=== PATIENT | female | born 1970 | race Caucasian/White ===

== ENCOUNTER → 2024-04-05 15:19 | Outpatient (REF) | payer OTHER, SELFPAY | LOC: HWWDC 15:19 | PROVIDERS: ATTENDING PHYSICIAN Physician Assistant Medical | DX: Z12.31 Encounter for screening mammogram for malignant neoplasm of breast (principal) | CPT/HCPCS: 77063; 77067 ==

== ENCOUNTER → 2024-11-02 14:08 | Outpatient (REF) | payer OTHER, SELFPAY | LOC: RCS 14:08 | PROVIDERS: ATTENDING PHYSICIAN Orthopaedic Surgery Hand Surgery; FAMILY PHYSICIAN Physician Assistant Medical | DX: Z01.818 Encounter for other preprocedural examination (principal) | CPT/HCPCS: 93005 ==

== ENCOUNTER 2025-07-19 14:00 | Inpatient (IN) | payer OTHER, SELFPAY ==
[2025-07-19] VITALS (23 sets, daily range): BP systolic 89–130; BP diastolic 19–85; BMI 33.5; BMI 33.0
[2025-07-19] MEDS: NSS 1000 IV ×4 (10:09→20:47)
--- NOTE | 2025-07-19 10:27 | ED.GENMED ---
History of Present Illness
General
Chief Complaint: Abdominal Pain
Source: patient
Exam Limitations: none
Time Seen by Provider: 07/19/25 09:44
History of Present Illness
History of Present Illness:
Patient started with right sided back pain with radiation to groin 4 days ago. Followed by some chills yesterday and shortness of breath and now with diarrhea. No urinary symptoms. History of kidney stones. Also some chest tightness. This is
also been since yesterday.
Past History
Past History
ED Past Medical History: Hypothyroidism
ED Past Surgical History: Cholecystectomy and Other (Hernia repair and stent for kidney stone)
Social History
Tobacco: Non-smoker
Alcohol: Occasional
Drug: None
Personal:
Living: with family
Family History
Family History: Negative Diabetes, Hypertension, Early CAD or Asthma
Review of Systems
Review of Systems
All Other Systems: Not applicable
Constitutional: Reports chills
Respiratory: Reports trouble breathing
Cardiac: Reports chest pain
Phy Exam
Physical Exam
Physical Exam:
GENERAL: Alert and oriented in no apparent distress
EYE: Orbits normal.
NECK: Supple, no significant adenopathy.
ENT: Pharynx without erythema
CARDIAC: Mildly tachycardic and regular no murmur regular rate and rhythm without any obvious murmurs.
LUNGS: Clear breath sounds,normal
ABDOMEN: Soft, mild right lower quadrant tenderness. No rebound or guarding no mass or hernia mild right CVA tenderness
NEUROLOGICAL: Alert and oriented , grossly non-focal
SKIN: Warm and dry, no rash or lesion, no discoloration, skin intact.
MUSCULOSKELETAL: No edema,no deformity.Good color
PSYCH: Normal and appropriate interaction.
Course
Orders/Labs/Results
Orders:
Orders
07/19/25 09:52
Cardiac Monitoring- Treatment ONCE
IV Insert/Care/Rem.- Treatment PRN
0.9% Sodium Chloride 1000 ml [Nss] 1,000 ml IV BOLUS
Pulse Ox/cont/shift [RESP] Stat
Quantity: 1
07/19/25 09:53
Electrocardiogram (*1) Stat
Reason for Study: Abdominal Pain
EKG- Treatment ONCE
Test Result ONCE
07/19/25 10:07
Complete Blood Count/With Diff Urgent
Comprehensive Metabolic Panel Urgent
D-Dimer Urgent
HCG, Serum Qualitative Screen Urgent
Lactic Acid Urgent
Lipase Urgent
Troponin I Urgent
Blood Culture Q30M
SOLE Source: Blood/Venous
Specimen Description:
07/19/25 10:28
Acetaminophen 1000MG/100Ml [Ofirmev] 1,000 mg in 100 ml IV ONCE
Acetaminophen IV Indication:: ED Narcotic Naive Pt-ONCE
07/19/25 10:43
CT Pe/abd/pel W Urgent
Reason For Exam: Short of breath/positive dimer
07/19/25 10:44
Cefepime HCl [Maxipime] 2,000 mg IV NOW STA
07/19/25 10:51
0.9% Sodium Chloride 1000 ml [Nss] 1,000 ml IV BOLUS
07/19/25 10:59
Blood Culture Q30M
SOLE Source: Blood/Venous
Specimen Description:
07/19/25 11:45
Urinalysis Reflex To Culture Urgent
Date Specimen was Collected: 07/19/25
Time Specimen was Collected: 11:32
Urine Microscopic Reflex Cult Urgent
Urine Culture Urgent
SOLE Source: U
Specimen Description:
Date Specimen was Collected: 07/19/25
Time Specimen was Collected: 11:32
Abnormal Lab Results
07/19/25 07/19/25
10: 11:45
RBC 3.76 L 10^6/uL
(4.20-5.40)
Hgb 11.5 L g/dL
(12.0-16.0)
Hct 33.5 L %
(37.0-47.0)
Plt Count 123 L 10^3/uL
(130-400)
MPV 11.7 H fL
(7.4-10.4)
Absolute Neuts (auto) 7.5 H 10^3/uL
(1.4-6.5)
Absolute Lymphs (auto) 0.6 L 10^3/uL
(1.2-3.4)
Neutrophils % 86.3 H %
(42.2-75.2)
Lymphocytes % 7.4 L %
(20.5-51.1)
D-Dimer 3.23 H ug/mlFEU
(0.00-0.50)
Sodium 132 L mmol/L
(135-145)
Carbon Dioxide 20 L mmol/L
(22-30)
Glucose 194 H mg/dl
(70-99)
Lactic Acid 2.2 H mmol/L
(0.7-2.0)
Calcium 8.3 L mg/dl
(8.4-10.2)
AST 41 H U/L
(14-36)
ALT 69 H U/L
(0-35)
Total Protein 5.5 L g/dl
(6.3-8.2)
Albumin 3.0 L g/dl
(3.5-5.0)
Ur Occult Blood Reflex 2+ A
(Negative)
Leukocyte Esterase Rfl 2+ A
(Negative)
Urine Glucose 2+ A
(Negative)
Urine Albumin (Reflex) 3+ A
(Neg - Trace)
07/19/25 10:07
07/19/25 10:07
Vital Signs
Initial and Last Documented VS:
Initial Vital Signs
Temp Pulse Resp BP Pulse Ox
98.2 F 114 20 95/64 96
07/19/25 09:11 07/19/25 09:11 07/19/25 09:11 07/19/25 09:11 07/19/25 09:11
Last Documented Vital Signs
Temp Pulse Resp BP Pulse Ox
98.2 F 96 20 95/64 96
07/19/25 09:11 07/19/25 10:15 07/19/25 09:11 07/19/25 09:11 07/19/25 10:28
MDM/Problems Addressed
Differential Diagnosis Includes:
Large differential including obstructing kidney stone with or without pyelo-, appendicitis, colitis. Also having some chest tightness and shortness of breath. Cardiac testing and D-dimer. Workup in progress
*Radiology
Radiology exam reviewed: radiology read reviewed (No acute findings)
*Pulse Oximetry
SaO2: 96
Oxygen Mode of Delivery: Room air
Patient hypoxic: no
*Head Knitting Machine Fixer Interpretation
Rate: normal
Interpretation: normal
Heart Rate: 77
Rhythm: sinus
*Critical Care Note
Total Time (30-74mins, 75-104mins- exclusive of procedures): 40
Data Reviewed
Review of Other/Old Records Reveals: Labs, Records and Testing
Update Note
Update Note:
1050... Rechecked. D-dimer positive. False positive from other inflammatory issue versus true positive. Needs a CT angio. Will also get CT abdomen and pelvis. Will cover with antibiotics for possible pyelo-/obstructing stone. More fluids.
Patient and family updated. Patient rechecked multiple times. Blood pressure remains slightly low although she appears well.
Only positive significant finding is urine appears positive and lactic acid is mildly positive. At this time appears to be a pyelonephritis with some early urosepsis. Will admit to medicine.
ED Attending Note
-
Portions of this chart may have been created with voice recognition software.� Occasional wrong word or��sound alike� substitutions may have occurred due to the inherent limitations of voice recognition software.
Discharge Plan
Departure
Patient Disposition: Admit
Date of Disposition: 07/19/25
Time of Disposition: 12:11
Presentation/result/management discussed w/ accepting MD/DO: Hospitalist
Discharge Problem:
Pyelonephritis/hypotension
Prescriptions:
No Action
cyanocobalamin (vitamin B-12) 1,000 MCG tablet
1,000 mcg PO DAILY
ascorbic acid (vitamin C) 250 MG tablet
250 mg PO DAILY
calcium carbonate 500 MG tablet
500 mg PO DAILY
duloxetine 60 MG capsule,delayed release(DR/EC)
60 mg PO DAILY
cholecalciferol (vitamin D3) 2,000 UNIT tablet
2,000 unit PO DAILY
PreserVision AREDS-2 1 EACH capsule
1 cap PO DAILY
meloxicam 15 MG tablet
15 mg PO DAILY Qty: 30 0RF
Zepbound 7.5 mg/0.5 mL Pen Injector
7.5 mg SC TU
acetaminophen [Tylenol Extra Strength] 500 MG tablet
1,000 mg PO Q6HPRN PRN (Reason: mild pain)
acetaminophen [Tylenol] 325 mg Tablet
650 mg PO DAILY
aspirin 81 mg Tablet,Delayed Release (Dr/Ec)
81 mg PO DAILY
lisinopril 10 mg Tablet
10 mg PO DAILY
levothyroxine [Synthroid] 112 mcg Tablet
112 mcg PO DAILY
metformin 750 mg Tablet Extended Release 24 Hr
750 mg PO QPM
pregabalin [Lyrica] 75 mg Capsule
75 mg PO BID
Referrals:
Janis Chase PA-C [Family Provider, Family Practice]
Discharge Date and Time
Print Language: UPPER SORBIAN
[2025-07-19] MEDS: OFIRMEV 100 IV (10:31)
[2025-07-19 10:33] LABS: Hematocrit 33.5 % (37.0-47.0); Hemoglobin 11.5 g/dL (12.0-16.0); Mean Corp Hgb Conc. 34.3 g/dL (33.0-37.0); Mean Corpuscular Volume 89.1 fL (81.0-99.0); Nucleated Red Blood Cells % 0 %; Platelet Count 123 10^3/uL (130-400); Red Cell Dist. Width 12.8 % (11.5-14.5)
[2025-07-19 10:37] LABS: D-Dimer 3.23 ug/mlFEU (0.00-0.50); HCG, Serum Qualitative Screen Negative
[2025-07-19 10:43] LABS: ALT (SGPT) 69 U/L (0-35); AST (SGOT) 41 U/L (14-36); Albumin 3.0 g/dl (3.5-5.0); Alkaline Phosphatase 95 U/L (38-126); Blood Urea Nitrogen 15 mg/dl (7-17); Calcium 8.3 mg/dl (8.4-10.2); Carbon Dioxide 20 mmol/L (22-30); Chloride 105 mmol/L (98-107); Glucose 194 mg/dl (70-99); Lipase 32 U/L (23-300); Potassium 3.5 mmol/L (3.5-5.1); Sodium 132 mmol/L (135-145); Total Protein 5.5 g/dl (6.3-8.2); eGFR > 60.00
[2025-07-19 10:50] LABS: Troponin I < 0.012 ng/ml
[2025-07-19] MEDS: MAXIPIME 2000 MG IV (11:03)
[2025-07-19 12:07] LABS: Urine Character Cloudy (Clear)
[2025-07-19 12:22] LABS: Urine Squamous Cell 0-2 /LPF (Few)
[2025-07-19 12:23] LABS: Urine Red Blood Cell 0-2 /HPF (0-2)
--- NOTE | 2025-07-19 12:24 | HPS.HSE ---
Addendum entered and electronically signed by Judith Turcios MD 07/19/25 17:52:
This is an addendum to H&P written by Mary Anne Medina on 07/19/2025. �Patient seen and examined independently with WOODWIND INSTRUMENT REPAIRER.
55-year-old female past medical history nephrolithiasis status post ureteroscopy/cystoscopy and laser lithotripsy and renal stent x 2, type 2 diabetes, hypothyroidism, fibromyalgia, anxiety, osteoarthritis, obesity, migraines, herpes simplex virus,
cervical degenerative disease with radiculopathy, varicose veins status post vein stripping, left knee Smyth's cyst, presenting with right flank pain to the right groin 5 days ago with urinary frequency and vomiting. �Pudding-like stool 2 times a
day.
Vital signs show blood pressure 90s.
Urinalysis unremarkable.
CT abdomen pelvis shows right renal pyelonephritis without obstructive uropathy.
Patient with acute right-sided pyelonephritis IV fluids. �Urine culture, blood cultures. �Cefepime.
Original Note:
Family Physician
-
Family Physician: Janis Chase
Chief Complaint
-
Right sided flank pain, urinary frequency 5 days ago, pudding-like stool
History of Present Illness
55-year-old female complaining of right sided back pain with radiation to groin and urinary frequency 5 days ago. She reports the urinary frequency lasted 1 day. She states she was in [place] went to a wedding on Thursday then woke up Thursday
a.m. with right flank pain to right lower quadrant along with vomiting and chills. She headed home to [place] she states she also developed some pudding-like stool 2 times a day for the past 5 days, headache x 3 days resolving yesterday along
with some shortness of breath and chest tightness. She denies urinary symptoms but has history of renal calculi requiring lithotripsy and stents. She went to the wedding with her and parents who are in the room all of them ate the same
items no one is currently sick. She has no respiratory symptoms she was in a hot tub but legs only she has no rash, fever, joint pain, joint swelling, palpitations, current nausea, current vomiting, current headache, neck pain, nuchal rigidity,
cough.
She has past medical history nephrolithiasis, diverticulosis, colonic polyps, DM 2, migraines, hypothyroidism, fibromyalgia, anxiety, herpes simplex virus, cervical DDD with radiculopathy, mildly elevated ALT, class II obesity, varicose veins status
post vein stripping, osteoarthritis, left knee total arthroplasty 12/30/2021 left knee Smyth's cyst
Medical History
Past Medical History
Past Medical History: Reports Other
Additional Past Medical History:
nephrolithiasis
diverticulosis, colonic polyps
DM 2
migraines
hypothyroidism
fibromyalgia
anxiety
herpes simplex virus
cervical DDD with radiculopathy
mildly elevated ALT
class II obesity
varicose veins status post vein stripping,
osteoarthritis, left knee total arthroplasty
Past Surgical History: Reports Other
Additional Past Surgical History:
Left knee arthroscopy
Left knee total arthroplasty 12/30/2021
Cystoscopy ureteroscopy laser lithotripsy and renal stent x 2
Cholecystectomy
Abdominal hernia repair
Varicose vein stripping
[place] teeth extraction
Colonoscopy
Social History
Tobacco: Non-smoker
Alcohol: None
Drug: None
Personal:
Living: With Family
Family History
Family History: Other (Father A-fib, hypertension, pacemaker, diverticulosis, diverticulitis, polyps, mother history of thyroid cancer total thyroidectomy, colonic polyps)
Allergies / Home Medications
Allergies reflects when Allergies were last updated in [facility].
Home Medications with original date entered in [facility]
Allergy/Medication List:
Allergies
Allergy/AdvReac Type Severity Reaction Status Date / Time
No Known Allergies Allergy Verified 12/30/21 06:11
Home Medications
ascorbic acid (vitamin C) 250 mg tablet 250 mg PO DAILY 06/14/15
cyanocobalamin (vitamin B-12) 1,000 mcg tablet 1,000 mcg PO DAILY 06/14/15
calcium carbonate 500 mg PO DAILY 12/13/21
cholecalciferol (vitamin D3) 50 mcg (2,000 unit) tablet 2,000 unit PO DAILY 12/13/21
duloxetine 60 mg capsule,delayed release 60 mg PO DAILY 12/13/21
vit C 250 mg-vit E 90 mg-zinc 40 mg-copper 1 [id number] capsule (PreserVision AREDS-2) 1 cap PO DAILY 12/13/21
meloxicam 15 mg tablet 15 mg PO DAILY #30 tabs 12/16/21
acetaminophen 325 mg tablet (Tylenol) 650 mg PO DAILY 07/19/25
acetaminophen 500 mg tablet (Tylenol Extra Strength) 1,000 mg PO Q6HPRN PRN mild pain 07/19/25
aspirin 81 mg tablet,delayed release 81 mg PO DAILY 07/19/25
levothyroxine 112 mcg tablet (Synthroid) 112 mcg PO DAILY 07/19/25
lisinopril 10 mg tablet 10 mg PO DAILY 07/19/25
metformin 750 mg tablet,extended release 24 hr 750 mg PO QPM 07/19/25
pregabalin 75 mg capsule (Lyrica) 75 mg PO BID 07/19/25
tirzepatide (weight loss) 7.5 mg/0.5 mL subcutaneous pen injector (Zepbound) 7.5 mg SC TU 07/19/25
Review of Systems
-
History Source: Patient
A 12 point ROS was completed and negative except as noted: Yes
Constitutional: Reports Chills; Denies Weight Gain or Fatigue
EENT: Reports Sore Throat; Denies Runny Nose
Respiratory: Denies Cough or Trouble Breathing
Cardiac: Denies Chest Pain, Diaphoresis, Palpitations or Syncope
Abdomen/GI: Reports Abdominal Pain (Right flank, right groin, suprapubic), Vomiting (Once 5 days ago) and Diarrhea (Pudding-like stool 2 times a day); Denies Nausea, Constipated, Bloody Stools or Black Stools
: Reports Frequency (5 days ago) and Flank Pain (Right); Denies Dysuria, Incontinence, Difficulty Voiding, Urgency, Bleeding or Dark Urine
Musculoskeletal: Denies Joint Pain or Edema
Skin: Denies Itching or Rash
Neurological: Reports Headache (Headache x 3 days resolved yesterday 07/18/2025); Denies Dizzy or Weakness
Endocrine: Reports No Symptoms
Hematologic/Lymphatic: Reports No Symptoms
Psych: Reports Calm
Physical Exam
Vital Signs
Vital Signs
Temp Pulse Resp BP Pulse Ox
98.2 F 96 20 95/64 96
07/19/25 09:11 07/19/25 10:15 07/19/25 09:11 07/19/25 09:11 07/19/25 10:28
Physical Exam
General: Conversant; No Pain, Fever or Chills
HEENT: NormoCephalic, Anicteric, Moist mucous membranes, [place] Conjunctivae and No Ptosis
Respiratory: Clear; No Wheezes, Rales or Rhonchi
Cardiac: S1/S2 and Regular Rhythm; No Murmur, Rub, Gallop or Peripheral Edema
Breast: Deferred by me
GI: Soft, Non Distended, Normal Bowel Sounds, Tender (Slight suprapubic, right lower quadrant) and No Hepatosplenomegaly
Rectal: Deferred by Provider
Genito-urinary: Deferred by me
Musculoskeletal: No Clubbing, No Cyanosis and No Edema
Skin: Warm and Dry; No Rash or Jaundice
Neuro: AO x 3, No Motor Deficits, Nonfocal/grossly intact, Cranial Nerves Intact and No Sensory Deficits; No Slurred Speech, Facial Droop or Tremors
Psych: Calm
Laboratory Results
-
07/19/25 10:07
07/19/25 10:07
Laboratory Results
Lactic Acid 2.2 mmol/L (0.7-2.0) H 07/19/25 10:07
Total Bilirubin 0.7 mg/dl (0.2-1.3) 07/19/25 10:07
AST 41 U/L (14-36) H 07/19/25 10:07
ALT 69 U/L (0-35) H 07/19/25 10:07
Alkaline Phosphatase 95 U/L (38-126) 07/19/25 10:07
Troponin I < 0.012 ng/ml 07/19/25 10:07
Lipase 32 U/L (23-300) 07/19/25 10:07
Impression/Plan
-
Impression/plan:
Admit to IMU
#Acute pyelonephritis right sided
#History nephrolithiasis status post Cystoscopy ureteroscopy laser lithotripsy and renal stent x 2
Cholecystectomy
WBC 8.7, HR 96, 95/64, 98.2 F
- IV NSS 2 L given in ER, continue IV NSS 100 cc an hour
- IV cefepime
- Follow urine culture
- Follow CBC, CMP
CT DDENDED REPORT:
The right kidney cortex is a little thicker than the left renal cortex and right renal opacification is minimally diffusely heterogeneous with some questionable minimal perinephric stranding.
Findings could represent RIGHT RENAL PYELONEPHRITIS, without obstructive uropathy.
#Acute hypotension likely secondary to SIRS concern for sepsis
BP 95/64
-IV NSS 2 L given in ER continue IV NSS 100 cc an hour
-Hold lisinopril [address] PE/abdominal pelvis:
1. No evidence of central pulmonary embolism.
2. Mild bibasilar subsegmental atelectasis and tiny bilateral pleural effusions,
right slightly greater than left.
3. Prior cholecystectomy.
4. Distal colonic diverticulosis. No intestinal obstruction, free air or findings to
suggest obstructive uropathy bilaterally.
5. Mild hepatomegaly liver approximate 21 cm
#Loose stools pudding-like likely reactive
History diverticulosis colonic polyps
- if stool becomes watery will check stool studies
#Anemia�normocytic
Hgb 11.5 prior 13.15 December 2021
-Check iron panel, B12, folate-continue vitamin B12
#Thrombocytopenia possibly reactive
PLT 123
Follow CBC, INR
#Acute transaminitis
History mildly elevated ALT
AST 41, ALT 69
follow CMP
#DM 2
Accu-Cheks with SSI, check HgbA1c
-Blood sugar 194
-Hold metformin 750 mg every afternoon
#Hypothyroidism
TSH with free T4 reflex
Continue levothyroxine 112 mcg p.o. daily
#Fibromyalgia
Hold meloxicam 15 mg daily
- Continue Lyrica 75 mg twice daily
#Anxiety
- Continue duloxetine 60 mg daily
Osteoarthritis, left knee total arthroplasty 12/30/2021
- Continue Tylenol 660 mg daily and as needed, calcium carbonate, vitamin D3
Class II obesity
Patient on Zepbound 7.5 mg subcu Tuesdays last dose 07/11/2025
Other PMH:
Migraines�no current headache prior headache ended yesterday 07/18/2025
Herpes simplex virus
cervical DDD with radiculopathy,
varicose veins status post vein stripping
left knee Smyth's cyst
DVT prophylaxis
Subcu heparin
Full code
[2025-07-19 14:09] LABS: Iron 20 ug/dl (37-170)
[2025-07-19 14:12] LABS: Total Iron Binding Capacity 233 ug/dl (265-497)
[2025-07-19 14:39] LABS: Ferritin 173.0 ng/ml (11.1-264.0)
[2025-07-19 14:45] LABS: INR 1.03; PT 14.0 Sec (11.4-14.6)
[2025-07-19 15:10] LABS: Folate 9.5 ng/ml (2.76-20); Vitamin B12 > 1000 pg/ml (239-931)
--- NOTE | 2025-07-19 15:45 | EDCM ---
CM reviewed chart and met with pt bedside in ED. Lives with her in 2 story home, 2 [address]. has first floor half bath, full flight to second floor bedroom and full bath.
Independent in ADLs, personal care and ambulation at baseline. NO DME.
Confirms prescription coverage.
Hx VN after shoulder surgery, no hx SNF
PCP: Janis Perez
Pharmacy: [facility]
Anticipate discharge home, CM will continue to follow for all discharge planning needs
[2025-07-19] MEDS: MAXIPIME 1000 MG IV (18:20)
[2025-07-19] MEDS: VALTREX 500 MG PO (18:20)
[2025-07-19] MEDS: STERILE WATER FOR INJECTION 10 ML IV (18:20)
[2025-07-19] MEDS: HEPARIN 5000 UNITS SC (20:11)
[2025-07-19] MEDS: LYRICA 75 MG PO (20:15)
--- NOTE | 2025-07-19 21:28 | PTCARENOTE ---
Admitted pt. aaox3, pleasant. at bedside. IVF running. BP stable. OOB to BR no issues. Tenderness in R flank. NO assessment changes. IVabx. no c/o sob. NSR on monitor. Remains RA. Will continue to monitor.
[2025-07-20] VITALS (14 sets, daily range): BP systolic 100–128; BP diastolic 66–80
[2025-07-20] MEDS: MAXIPIME 1000 MG IV ×4 (02:12→21:10)
[2025-07-20] MEDS: STERILE WATER FOR INJECTION 10 ML IV ×4 (02:12→21:10)
[2025-07-20] MEDS: SYNTHROID 112 MCG PO (05:33)
[2025-07-20] MEDS: TYLENOL 650 MG PO ×2 (05:33→14:20)
[2025-07-20 06:09] LABS: Hematocrit 31.7 % (37.0-47.0); Hemoglobin 11.0 g/dL (12.0-16.0); Mean Corp Hgb Conc. 34.7 g/dL (33.0-37.0); Mean Corpuscular Volume 89.5 fL (81.0-99.0); Nucleated Red Blood Cells % 0 %; Platelet Count 131 10^3/uL (130-400); Red Cell Dist. Width 12.8 % (11.5-14.5)
[2025-07-20 06:17] LABS: ALT (SGPT) 71 U/L (0-35); AST (SGOT) 39 U/L (14-36); Albumin 2.8 g/dl (3.5-5.0); Alkaline Phosphatase 95 U/L (38-126); Blood Urea Nitrogen 10 mg/dl (7-17); Calcium 8.3 mg/dl (8.4-10.2); Carbon Dioxide 19 mmol/L (22-30); Chloride 111 mmol/L (98-107); Estimated Creatinine Clearance 85 ml/min; Glucose 114 mg/dl (70-99); Magnesium 1.7 mg/dl (1.6-2.3); Potassium 4.1 mmol/L (3.5-5.1); Sodium 135 mmol/L (135-145); Total Protein 5.3 g/dl (6.3-8.2); eGFR > 60.00
[2025-07-20] MEDS: NSS 1000 IV ×2 (07:07→17:01)
[2025-07-20] MEDS: ASPIR LOW (ENTERIC COATED) 81 MG PO (08:05)
[2025-07-20] MEDS: HEPARIN 5000 UNITS SC ×2 (08:05→21:09)
[2025-07-20] MEDS: CYMBALTA DELAYED RELEASE 60 MG PO (08:05)
[2025-07-20] MEDS: VITAMIN D3 (cholecalciferol) 50 MCG PO (08:07)
[2025-07-20] MEDS: OCUVITE SOFTGEL 1 CAP PO (08:07)
[2025-07-20] MEDS: OSCAL CAL 500 500 MG PO (08:07)
[2025-07-20] MEDS: LYRICA 75 MG PO ×2 (08:07→21:09)
[2025-07-20] MEDS: VITAMIN B-12 PO (08:08)
[2025-07-20 08:42] LABS: Glycohemoglobin (HgbA1c) 5.2 % (4.0-5.6)
[2025-07-20] MEDS: TYLENOL PO (09:08)
[2025-07-20] MEDS: VALTREX 500 MG PO (09:20)
--- NOTE | 2025-07-20 10:59 | W.PN.HOSP.TC ---
Today's Communication/Plan
-
cont IVF
repeat blood cultures
cont cefepime
transfer to med/surg
Assessment / Plan
Assessment / Plan
pt is a 55 year old female
Acute pyelonephritis right sided (does not meet sepsis criteria)-- (History nephrolithiasis status post Cystoscopy ureteroscopy laser lithotripsy and renal stent x 2)--CT scan with right renal pyelonephritis without obstruction--blood cultures
positive for Klebsiella and urine culture with gm neg bacilli but likely same bacteria--repeat blood culture until neg to prove clearance--cont cefepime until sensitivities back--cont IVF--
Acute hypotension --cont IVF--hold BP meds for now
soft stools--likely abx related--follow for now
hypothyroid--TSH 30--will increase synthroid dose and will need TFT recheck in 4-6 weeks
Anemia of chronic disease--based on iron studies--B12 and folate WNL--cont supplements
Thrombocytopenia--likely due to infection
Acute transaminitis-- follow CMP
Type 2 DM--Accu-Cheks with SSI, check [id number]--Aapo metformin 750 mg every afternoon due to IV contrast study
Fibromyalgia--Hold meloxicam 15 mg daily-- Continue Lyrica 75 mg twice daily
Anxiety-- Continue duloxetine 60 mg daily
Osteoarthritis, left knee total arthroplasty 12/30/2021- Continue Tylenol 660 mg daily and as needed, calcium carbonate, vitamin D3
obesity--Patient on Zepbound 7.5 mg subcu Tuesdays last dose 07/11/2025--affects all aspects of care
Migraines�no current headache prior headache ended yesterday 07/18/2025
cervical DDD with radiculopathy
varicose veins status post vein stripping
DVT proph--Subcu heparin
code status--Full code
Anticipated Discharge: 24 - 48 hours
Subjective/Interval History
-
Date of Service: July 20, 2025
pt without c/o
Objective Data
-
Labs:
Laboratory Results
07/20/25
05:32
WBC 6.1
Hgb 11.0 L
Hct 31.7 L
Plt Count 131
Sodium 135
Potassium 4.1
Chloride 111 H
Carbon Dioxide 19 L
BUN 10
Creatinine 0.9
Glucose 114 H
Calcium 8.3 L
Total Bilirubin 0.7
AST 39 H
ALT 71 H
Alkaline Phosphatase 95
Vital Signs:
max temp for 24 hours
07/19/25
22:56
Temp 99.7 F
Vital Signs
Temp Pulse Resp BP Pulse Ox
98.5 F 88 24 104/69 95
07/20/25 07:18 07/20/25 04:00 07/20/25 04:00 07/20/25 04:00 07/20/25 00:00
Review of Systems
-
All other systems: Reviewed and negative
Physical Exam
-
General: Well Developed, Well Nourished and No Apparent Distress
HEENT: Normocephalic and Atraumatic
Respiratory: Clear to Auscultation; Negative Wheezes or Rhonchi
Cardiac: Regular Rhythm and S1/S2; Negative Murmur
GI: Soft, Nontender, Nondistended and Normal Bowel Sounds
Genito-urinary: Costovertebral Angle Tend (right side--minimal)
Musculoskeletal: No Clubbing, No Cyanosis and No Edema
Neuro: Awake
--- NOTE | 2025-07-20 12:01 | CM ---
Following up on Patient. Hospital Notes state that patient is continuing IV fluids, repeat blood cultures, and continue IV Cefapine- no plan thus far for milk hauler.
PLAN: Anticipate Home No Needs
--- NOTE | 2025-07-20 12:06 | PTCARENOTE ---
Patient received from night warehouse manager RN. AAOx3 no discomfort at this time. Patient ambulating in room, ordered breakfast. VS within normal limits. Morning meds administered, plan of care discussed for the day.
--- NOTE | 2025-07-20 12:13 | CM ---
Hospital Notes state that patient is continuing IV fluids, repeat blood cultures, and continue IV Cefepime- no plan thus far for skilled nursing.
PLAN: Anticipate Home No Needs
[2025-07-20] MEDS: STERILE WATER FOR INJECTION IV (17:23)
[2025-07-20] MEDS: MELATONIN 3 MG PO (21:12)
[2025-07-21] MEDS: NSS 1000 IV (02:33)
[2025-07-21] MEDS: STERILE WATER FOR INJECTION 10 ML IV ×2 (02:34→08:48)
[2025-07-21] MEDS: MAXIPIME 1000 MG IV ×2 (02:35→08:47)
[2025-07-21] MEDS: SYNTHROID 125 MCG PO (05:05)
[2025-07-21 06:45] VITALS: BP 106/73
[2025-07-21 07:12] LABS: Hematocrit 30.9 % (37.0-47.0); Hemoglobin 10.6 g/dL (12.0-16.0); Mean Corp Hgb Conc. 34.3 g/dL (33.0-37.0); Mean Corpuscular Volume 89.8 fL (81.0-99.0); Nucleated Red Blood Cells % 0 %; Platelet Count 141 10^3/uL (130-400); Red Cell Dist. Width 13.2 % (11.5-14.5)
[2025-07-21 07:44] LABS: ALT (SGPT) 53 U/L (0-35); AST (SGOT) 22 U/L (14-36); Albumin 2.6 g/dl (3.5-5.0); Alkaline Phosphatase 88 U/L (38-126); Blood Urea Nitrogen 9 mg/dl (7-17); Calcium 8.3 mg/dl (8.4-10.2); Carbon Dioxide 23 mmol/L (22-30); Chloride 109 mmol/L (98-107); Estimated Creatinine Clearance 85 ml/min; Glucose 93 mg/dl (70-99); Magnesium 1.6 mg/dl (1.6-2.3); Potassium 3.8 mmol/L (3.5-5.1); Sodium 137 mmol/L (135-145); Total Protein 5.0 g/dl (6.3-8.2); eGFR > 60.00
[2025-07-21] MEDS: CYMBALTA DELAYED RELEASE 60 MG PO (08:46)
[2025-07-21] MEDS: ASPIR LOW (ENTERIC COATED) 81 MG PO (08:46)
[2025-07-21] MEDS: TYLENOL 650 MG PO (08:46)
[2025-07-21] MEDS: LYRICA 75 MG PO (08:46)
[2025-07-21] MEDS: VITAMIN D3 (cholecalciferol) 50 MCG PO (08:46)
[2025-07-21] MEDS: OCUVITE SOFTGEL 1 CAP PO (08:46)
[2025-07-21] MEDS: VITAMIN B-12 1000 MCG PO (08:46)
[2025-07-21] MEDS: HEPARIN 5000 UNITS SC (08:47)
[2025-07-21] MEDS: OSCAL CAL 500 500 MG PO (08:47)
[2025-07-21] MEDS: VALTREX 500 MG PO (10:01)
--- NOTE | 2025-07-21 12:11 | W.PN.HOSP.TC ---
Today's Communication/Plan
-
Transition to oral Keflex
Discharge
Assessment / Plan
Assessment / Plan
Acute pyelonephritis right sided (does not meet sepsis criteria)-- (History nephrolithiasis status post Cystoscopy ureteroscopy laser lithotripsy and renal stent x 2)--CT scan with right renal pyelonephritis without obstruction--blood cultures
positive for Klebsiella and urine culture with gm neg bacilli but likely same bacteria--repeat blood culture until neg to prove clearance--remains on IV cefepime as of this morning. Urine culture finalized�demonstrated Klebsiella with sensitivity
to first generation cephalosporins. Will transition to oral Keflex 500 mg every 12 hours to complete 14-day course of antibiotics for pyelonephritis.
Acute hypotension --cont IVF--hold BP meds for now
soft stools--likely abx related--follow for now
hypothyroid--TSH 30--will increase synthroid dose and will need TFT recheck in 4-6 weeks. Placed instructions to avoid calcium/magnesium supplements, or any food within 2 hours before taking levothyroxine
Anemia of chronic disease--based on iron studies--B12 and folate WNL--cont supplements
Thrombocytopenia--likely due to infection
Acute transaminitis-- follow CMP
Type 2 DM--Accu-Cheks with SSI, check [id number]--Ovnk metformin 750 mg every afternoon due to IV contrast study
Fibromyalgia--Hold meloxicam 15 mg daily-- Continue Lyrica 75 mg twice daily
Anxiety-- Continue duloxetine 60 mg daily
Osteoarthritis, left knee total arthroplasty 12/30/2021- Continue Tylenol 660 mg daily and as needed, calcium carbonate, vitamin D3
obesity--Patient on Zepbound 7.5 mg subcu Tuesdays last dose 07/11/2025--affects all aspects of care
Migraines�no current headache prior headache ended yesterday 07/18/2025
cervical DDD with radiculopathy
varicose veins status post vein stripping
DVT proph--Subcu heparin
code status--Full code
Anticipated Discharge: Today
Subjective/Interval History
-
Date of Service: July 21, 2025
Seen and examined at the bedside. No acute events overnight. AFVSS this morning
Blood culture and urine culture growing Klebsiella. Urine culture with sensitivities to first generation cephalosporins
Patient up and walking around the room, states she feels very well.
Objective Data
-
Labs:
Laboratory Results
07/21/25
06:03
WBC 7.3
Hgb 10.6 L
Hct 30.9 L
Plt Count 141
Sodium 137
Potassium 3.8
Chloride 109 H
Carbon Dioxide 23
BUN 9
Creatinine 0.9
Glucose 93
Calcium 8.3 L
Total Bilirubin 0.5
AST 22
ALT 53 H
Alkaline Phosphatase 88
Vital Signs:
Vital Signs
Temp Pulse Resp BP Pulse Ox
99.8 F 80 18 106/73 96
07/21/25 06:45 07/21/25 06:45 07/21/25 06:45 07/21/25 06:45 07/21/25 06:45
Review of Systems
-
History Source: Patient
All other systems: Reviewed and negative
Physical Exam
-
General: Well Developed, Well Nourished and Obese
HEENT: Normocephalic, Atraumatic, Moist Mucous Membranes and Anicteric
Respiratory: Clear to Auscultation and Non Labored Respirations; Negative Accessory Resp Muscle Use
Cardiac: Regular Rhythm and S1/S2; Negative Murmur, Rub or Gallop
GI: Soft, Nontender, Nondistended and Normal Bowel Sounds
Genito-urinary: No Costovertebral Tender
Musculoskeletal: No Clubbing, No Cyanosis, No Edema and Normal Gait & Station
Skin: Warm and Dry; Negative Rash
Neuro: AO x 3 and Nonfocal/Grossly Intact; Negative Tremors
Psych: Calm
Data Reviewed
-
Labs: Labs Reviewed by me and Discussed with Patient
--- NOTE | 2025-07-21 14:12 | CM ---
Patient seen at bedside on . Patient is for discharge home with [facility] to follow. CM will continue to follow for discharge planning needs.
Plan; home with [facility] to follow, accepted.
--- NOTE | 2025-07-22 13:03 | W.DCSUMMARY ---
Discharge Summary
Discharge Data
Date of Admission: 07/19/25
Date of Discharge: 07/21/25
Total time spent discharging patient (in min): 33
-
Pending Results: Yes
Additional Pending Results:
Repeat Blood cultures
Hospital Course
Discharging Physician : Kareem Foss DO
Disposition : Home
Principal Discharge diagnosis :
Klebsiella bacteremia
Right-sided pyelonephritis
Undertreated hypothyroidism
Chronic Discharge diagnosis :
NIDDM
Hypothyroidism
Anemia of chronic disease
Fibromyalgia
Obesity
Nephrolithiasis
Hospital Course :
55-year-old female that presented to the hospital with right-sided flank and groin pain that started 5 days prior to admission. Associated with urinary frequency and vomiting. No fevers or leukocytosis on arrival. CT A/P demonstrated signs of
right renal pyelonephritis without obstructive findings. Urine culture and blood cultures were obtained, was started on IV fluids and cefepime. Blood cultures ultimately returned positive for Klebsiella pneumoniae. Patient had rapid clinical
improvement on cefepime. Urine and blood culture returned with Klebsiella pneumonia resistant to only ampicillin and tetracycline. Was transitioned from cefepime to oral Keflex 500 mg every 12 hours to complete 14-day course of antibiotics.
Repeat blood cultures taken, negative at time of discharge and remained negative for additional 24 hours after discharge. Of note, was found to have undertreatment of her hypothyroidism, TSH here 30.8. Her levothyroxine dose was increased to 125
mcg daily. Educated her to avoid food, magnesium or calcium supplements within 1 hour before or after taking her levothyroxine
Important imaging findings :
CT A/P with IV contrast (07/19/2025)
Impression:No evidence of central pulmonary embolism. Mild bibasilar subsegmental atelectasis and tiny bilateral pleural effusions, right slightly greater than left. Prior cholecystectomy. Distal colonic diverticulosis. No intestinal obstruction,
free air or findings to suggest obstructive uropathy bilaterally. Mild hepatomegaly.
Addendum: The right kidney cortex is a little thicker than the left renal cortex and right renal opacification is minimally diffusely heterogeneous with some questionable minimal perinephric stranding. Findings could represent RIGHT RENAL
PYELONEPHRITIS, without obstructive uropathy.
Procedure findings : N/A
Consultants: N/A
Follow-up:
Family doctor within 1 week
Repeat BMP and CBC with differential in 1 week
Repeat TSH and free T4 in 4 to 6 weeks
Discharge Plan
-
Patient Disposition: Home (Routine Discharge)
Discharge Diagnosis/Procedures: Klebsiella bacteremia due to right pyelonephritis
Hypothyroidism with undertreatment
NIDDM
Fibromyalgia
Obesity
Condition: Fair
Diet: No restrictions
Additional Diets: Do not take calcium or magnesium supplements within 1 hour prior to taking ciprofloxacin
Activity: As tolerated
Driving Restrictions: No driving for 24 hours
Bathing Restrictions: None
Blood Work: Follow-up with your family doctor for repeat BMP and CBC in 1 week
Need to have thyroid function test (TSH, free T4) repeated in 4 to 6 weeks as outpatient
Referrals:
Janis Chase PA-C [Family Provider, Family Practice]
Additional Discharge Medication Instructions: Continue Keflex 500 mg every 12 hours for 12 more days after discharge
Increase levothyroxine to 125 mcg daily. Make sure that you are not eating breakfast with an 1 hour before or after taking levothyroxine so that it is optimally absorbed by your gut. Do not take magnesium or calcium supplements within 1 to 2 hours
of taking levothyroxine as this will decrease absorption.
Stop taking lisinopril until you see your family doctor
Prescriptions:
New
levothyroxine 125 mcg Tablet
125 mcg PO DAILY @ 0600 30 Days Qty: 30 0RF
cephalexin 500 mg capsule
500 mg PO Q12H 11 Days Qty: 22 0RF
Continued
cyanocobalamin (vitamin B-12) 1,000 MCG tablet
1,000 mcg PO DAILY
ascorbic acid (vitamin C) 250 MG tablet
250 mg PO DAILY
calcium carbonate 500 MG tablet
500 mg PO DAILY
duloxetine 60 MG capsule,delayed release(DR/EC)
60 mg PO DAILY
cholecalciferol (vitamin D3) 2,000 UNIT tablet
2,000 unit PO DAILY
PreserVision AREDS-2 1 EACH capsule
1 cap PO DAILY
meloxicam 15 MG tablet
15 mg PO DAILY Qty: 30 0RF
Zepbound 7.5 mg/0.5 mL Pen Injector
7.5 mg SC TU
acetaminophen [Tylenol Extra Strength] 500 MG tablet
1,000 mg PO Q6HPRN PRN (Reason: mild pain)
aspirin 81 mg Tablet,Delayed Release (Dr/Ec)
81 mg PO DAILY
metformin 750 mg Tablet Extended Release 24 Hr
750 mg PO QPM
pregabalin [Lyrica] 75 mg Capsule
75 mg PO BID
valacyclovir [Valtrex] 500 mg Tablet
500 mg PO DAILYPRN PRN (Reason: cold sores)
Held
lisinopril 10 mg Tablet
10 mg PO DAILY
Hold Instructions: Until you see your family doctor in office
Discontinued
acetaminophen [Tylenol] 325 mg Tablet
650 mg PO DAILY
levothyroxine [Synthroid] 112 mcg Tablet
112 mcg PO DAILY
Discharge Orders:
Discharge Patient (As Directed); Ordered 07/21/25
Ordered By: Kareem Foss
Discharge Date and Time
Discharge Date/Time: 07/21/25 14:30
Print Language: BELARUSIAN
== END 2025-07-21 14:30 | disposition home health service (06) | DRG 689 ==
LOC: 4 EAST ACU 14:00
PROVIDERS: Clinical Nurse Specialist Family Health; ADMITTING PHYSICIAN Hospitalist; ATTENDING PHYSICIAN Internal Medicine; EMERGENCY PHYSICIAN Emergency Medicine; FAMILY PHYSICIAN Physician Assistant Medical
DX: N10 Acute pyelonephritis (principal); J15.0 Pneumonia due to Klebsiella pneumoniae; R78.81 Bacteremia; J98.11 Atelectasis; E03.9 Hypothyroidism, unspecified; M79.7 Fibromyalgia; E11.9 Type 2 diabetes mellitus without complications; E66.812 Obesity, class 2; Z68.32 Body mass index [BMI] 32.0-32.9, adult; Z87.442 Personal history of urinary calculi; Z79.890 Hormone replacement therapy; Z90.49 Acquired absence of other specified parts of digestive tract; K57.30 Diverticulosis of large intestine without perforation or abscess without bleeding; Z79.84 Long term (current) use of oral hypoglycemic drugs; F41.9 Anxiety disorder, unspecified; G43.909 Migraine, unspecified, not intractable, without status migrainosus; M50.30 Other cervical disc degeneration, unspecified cervical region; M54.12 Radiculopathy, cervical region; D64.9 Anemia, unspecified; D69.6 Thrombocytopenia, unspecified; Z86.0100 Personal history of colon polyps, unspecified; Z79.1 Long term (current) use of non-steroidal anti-inflammatories (NSAID); Z79.899 Other long term (current) drug therapy; Z82.49 Family history of ischemic heart disease and other diseases of the circulatory system; D63.8 Anemia in other chronic diseases classified elsewhere
CPT/HCPCS: 71275; 74177; 80053; 81003; 81015; 82607; 82728; 82746; 83036; 83540; 83550; 83605; 83690; 83735; 84439; 84443; 84484; 84703; 85025; 85379; 85610; 87040; 87077; 87086; 87154; 87186; 87205; 93005; 96361; 96374; 96375; 99291; Q9967

== ENCOUNTER 2025-07-29 13:23 | Emergency (ER) | payer OTHER, SELFPAY ==
[2025-07-29 13:26] VITALS: BP 119/85
[2025-07-29 14:14] LABS: ALT (SGPT) 28 U/L (0-35); AST (SGOT) 22 U/L (14-36); Albumin 4.4 g/dl (3.5-5.0); Alkaline Phosphatase 128 U/L (38-126); Blood Urea Nitrogen 23 mg/dl (7-17); Calcium 10.2 mg/dl (8.4-10.2); Carbon Dioxide 28 mmol/L (22-30); Chloride 100 mmol/L (98-107); Glucose 81 mg/dl (70-99); Potassium 5.1 mmol/L (3.5-5.1); Sodium 138 mmol/L (135-145); Total Protein 7.6 g/dl (6.3-8.2); eGFR 59.71
[2025-07-29 14:45] LABS: Hematocrit 42.5 % (37.0-47.0); Hemoglobin 13.4 g/dL (12.0-16.0); Mean Corp Hgb Conc. 31.5 g/dL (33.0-37.0); Mean Corpuscular Volume 96.4 fL (81.0-99.0); Platelet Count 602 10^3/uL (130-400); Red Cell Dist. Width 13.1 % (11.5-14.5)
[2025-07-29 14:46] LABS: Nucleated Red Blood Cells % 0 %
--- NOTE | 2025-07-29 15:34 | ED.GENMED ---
History of Present Illness
<Durga Jenkins MD, Resident - Last Filed: 07/29/25 17:24>
General
Chief Complaint: Abnormal Lab Value
Source: patient and family
Exam Limitations: none
Time Seen by Provider: 07/29/25 15:14
History of Present Illness
History of Present Illness:
56-year-old female who presents with abnormal lab values from her PCPs office. Her only complaint is that she feels tired. Family is present at bedside. Outpatient labs showed a potassium of 5.7, creatinine 1.32, calcium 12.3, WBC 12.9, platelet
count 728 which prompted her to visit the emergency room. She was diagnosed right renal pyelonephritis and blood cultures that showed growth of Klebsiella, discharged on 07/22/2025 on Keflex 500 mg Q12 for 11 days. Her blood cultures were
negative on discharge. She has 1 day of the medication left and did not miss a single dosage. No nausea, vomiting, diarrhea, lethargy, abdominal pain, headache, blurry vision, flank pain, decreased urine output. No history of diabetes mellitus or
chronic kidney disease. No previous cardiac history. Past medical history of hypothyroidism on levothyroxine and fibromyalgia for which she is taking Lyrica and Cymbalta.
Past History
<Durga Jenkins MD, Resident - Last Filed: 07/29/25 17:24>
Past History
ED Past Medical History: Hypothyroidism
ED Past Surgical History: Cholecystectomy and Other (Hernia repair and stent for kidney stone)
Social History
Tobacco: Non-smoker
Alcohol: Occasional
Drug: None
Personal:
Living: with family
Family History
Family History: Negative Diabetes, Hypertension, Early CAD or Asthma
Review of Systems
<Durga Jenkins MD, Resident - Last Filed: 07/29/25 17:24>
Review of Systems
Allergies reviewed?: Yes
Other source history: family
All Other Systems: ROS reviewed and negative except as documented in HPI and ROS
Phy Exam
<Durga Jenkins MD, Resident - Last Filed: 07/29/25 17:24>
General Physical Exam
General Presentation: well appearing
General Skin: warm
General Habitus: normal
General Mental: alert
Cardiovascular Exam
Cardiovascular Exam: regular rate/rhythm and no edema
Pulmonary Exam
Pulmonary Exam: lungs clear and no respiratory distress
Gastrointestinal Exam
Gastrointestinal Exam: normal bowel sounds, non tender, soft and non distended
Neurological Exam
Neurological Exam: alert and oriented x3
Skin Exam
Skin Exam: normal color, warm/dry and no rash
Course
<Durga Jenkins MD, Resident - Last Filed: 07/29/25 17:24>
Orders/Labs/Results
Orders:
Orders
07/29/25 13:30
EKG [Electrocardiogram (*1)] Urgent
Reason for Study: Other
Other Reason for Exam: abnormal potassium
07/29/25 13:31
EKG- Treatment ONCE
07/29/25 13:36
CBC/With Diff [Complete Blood Count/With Diff] Urgent
CMP [Comprehensive Metabolic Panel] Urgent
07/29/25 15:47
0.9% Sodium Chloride 1000 ml [Nss] 1,000 ml IV BOLUS
Abnormal Lab Results
07/29/25
13:36
MCHC 31.5 L g/dL
(33.0-37.0)
Plt Count 602 H 10^3/uL
(130-400)
Abs Immat Gran (auto) 0.1 H 10^3/uL
(0-0.05)
Immature Gran % 0.8 H %
(0-0.5)
Lymphocytes % 20.4 L %
(20.5-51.1)
BUN 23 H mg/dl
(7-17)
Creatinine 1.1 H mg/dL
(0.6-1.0)
Alkaline Phosphatase 128 H U/L
(38-126)
07/29/25 13:36
07/29/25 13:36
Vital Signs
Initial and Last Documented VS:
Initial Vital Signs
Temp Pulse Resp BP Pulse Ox
97.8 F 85 18 119/85 98
07/29/25 13:26 07/29/25 13:26 07/29/25 13:26 07/29/25 13:26 07/29/25 13:26
Last Documented Vital Signs
Temp Pulse Resp BP Pulse Ox
97.8 F 85 18 117/75 98
07/29/25 13:26 07/29/25 13:26 07/29/25 13:26 07/29/25 17:00 07/29/25 15:34
Barilt;Jayjay Simons, DO - Last Filed: 07/29/25 17:12>
Orders/Labs/Results
Orders:
Orders
07/29/25 13:30
EKG [Electrocardiogram (*1)] Urgent
Reason for Study: Other
Other Reason for Exam: abnormal potassium
07/29/25 13:31
EKG- Treatment ONCE
07/29/25 13:36
CBC/With Diff [Complete Blood Count/With Diff] Urgent
CMP [Comprehensive Metabolic Panel] Urgent
07/29/25 15:47
0.9% Sodium Chloride 1000 ml [Nss] 1,000 ml IV BOLUS
Abnormal Lab Results
07/29/25
13:36
MCHC 31.5 L g/dL
(33.0-37.0)
Plt Count 602 H 10^3/uL
(130-400)
Abs Immat Gran (auto) 0.1 H 10^3/uL
(0-0.05)
Immature Gran % 0.8 H %
(0-0.5)
Lymphocytes % 20.4 L %
(20.5-51.1)
BUN 23 H mg/dl
(7-17)
Creatinine 1.1 H mg/dL
(0.6-1.0)
Alkaline Phosphatase 128 H U/L
(38-126)
07/29/25 13:36
07/29/25 13:36
Vital Signs
Initial and Last Documented VS:
Initial Vital Signs
Temp Pulse Resp BP Pulse Ox
97.8 F 85 18 119/85 98
07/29/25 13:26 07/29/25 13:26 07/29/25 13:26 07/29/25 13:26 07/29/25 13:26
Last Documented Vital Signs
Temp Pulse Resp BP Pulse Ox
97.8 F 85 18 117/75 98
07/29/25 13:26 07/29/25 13:26 07/29/25 13:26 07/29/25 17:00 07/29/25 15:34
<Durga Jenkins MD, Resident - Last Filed: 07/29/25 17:24>
MDM/Problems Addressed
Differential Diagnosis Includes:
pre renal acute kidney injury, dehydration,
MDM/Problems Addressed:
- Vitals stable, patient afebrile
- EKG: normal sinus rhythm
- CBC: platelet count of 608, suspect reactive thrombocytosis due to recent pyelonephritis infection
- CMP: Showed creatinine of 1.1 and BUN of 28- suspect dehydration, will give 1 liter 0.9% normal saline.
Will discharge patient home with instructions to f/u PCP in 5 days.
<Durga Jenkins MD, Resident - Last Filed: 07/29/25 17:24>
*Pulse Oximetry
SaO2: 98
Oxygen Mode of Delivery: Room air
Patient hypoxic: no
*Critical Care Note
Total Time (30-74mins, 75-104mins- exclusive of procedures): Not Applicable
ED Attending Note
<Durga Jenkins MD, Resident - Last Filed: 07/29/25 17:24>
-
Portions of this chart may have been created with voice recognition software.� Occasional wrong word or��sound alike� substitutions may have occurred due to the inherent limitations of voice recognition software.
<Jayjay Simons DO - Last Filed: 07/29/25 17:12>
ED Attending Note
Patient seen and examined by attending physician: Yes
I performed a history and physical exam of patient and discussed management with resident, I reviewed resident's note and agree with documented findings and plan of care.: Yes
ED Attending Note:
55-year-old female presents because outpatient labs revealed abnormal labs. The patient recently had pyelonephritis and has been on Keflex after she was here with bacteremia and was treated with IV antibiotics. The patient admits that earlier in
the week she still was not quite feel herself but as of the last 2 nights really started to feel a bit better. She admits she has not been eating and drinking quite as well she probably should. States she really only has drink 1 or 2 glass of
water a day. Patient finishes her antibiotics tomorrow. The patient does admit she has been nauseous and not really eating very well. She is on tirzepatide and missed the dose but then took her normal dose this past Thursday. Patient denies any
fevers or back pain no vomiting no abdominal pain. Exam: Awake alert oriented, no respiratory distress. Assessment and plan: Will initiate a PPI daily for the next 2 weeks that she has reports of reflux disease. I did advise to probably lower her
dose of tirzepatide for her next dose until she starts to feel completely improved and she agrees. I did advise drinking at least 10, 10 ounce glasses of water daily and consider electrolytes and she agrees. She will try small meals and repeat her
labs in 1 week.
Discharge Plan
Departure
Patient Disposition: Home (Routine Discharge)
Date of Disposition: 07/29/25
Time of Disposition: 17:11
Patient with high blood pressure during this ER visit?: No
Condition: Fair
Discharge Problem:
Abnormal laboratory test, Dehydration
Instructions: Dehydration, Adult (DC)
Prescriptions:
No Action
cyanocobalamin (vitamin B-12) 1,000 MCG tablet
1,000 mcg PO DAILY
ascorbic acid (vitamin C) 250 MG tablet
250 mg PO DAILY
calcium carbonate 500 MG tablet
500 mg PO DAILY
duloxetine 60 MG capsule,delayed release(DR/EC)
60 mg PO DAILY
cholecalciferol (vitamin D3) 2,000 UNIT tablet
2,000 unit PO DAILY
PreserVision AREDS-2 1 EACH capsule
1 cap PO DAILY
meloxicam 15 MG tablet
15 mg PO DAILY Qty: 30 0RF
Zepbound 7.5 mg/0.5 mL Pen Injector
7.5 mg SC TU
acetaminophen [Tylenol Extra Strength] 500 MG tablet
1,000 mg PO Q6HPRN PRN (Reason: mild pain)
aspirin 81 mg Tablet,Delayed Release (Dr/Ec)
81 mg PO DAILY
lisinopril 10 mg Tablet
10 mg PO DAILY
metformin 750 mg Tablet Extended Release 24 Hr
750 mg PO QPM
pregabalin [Lyrica] 75 mg Capsule
75 mg PO BID
valacyclovir [Valtrex] 500 mg Tablet
500 mg PO DAILYPRN PRN (Reason: cold sores)
levothyroxine 125 mcg Tablet
125 mcg PO DAILY @ 0600 30 Days Qty: 30 0RF
cephalexin 500 mg capsule
500 mg PO Q12H 11 Days Qty: 22 0RF
Referrals:
Janis Chase PA-C [Specified Professional Personl, Family Practice] - Follow up in 5-7 days
UNKNOWN - PT DOES,NOT KNOW [Family Provider]
Activity Restrictions/Additional Instructions:
You were evaluated for abnormal outpatient labs. Vitals were stable and patient afebrile. Repeat CBC--> WBC was8.9, hgb was 13.4. On repeat CMP, BUN was 23 and Creatinine was 1.1. Suspect dehydration, so 1 Liter of 0.9 NaCl administered. Please
follow up with your doctor within 5 days. Please return to ER if there is any headache, vision changes, fever, chills, nausea, vomiting, lethargy abdominal pain, flank pain, decreased urine output.
Please be sure to have your labs repeated in 1 week.
Please see your doctor in the next 3 to 5 days for follow-up and reevaluation.
Thank you for visiting the Emergency Department at [facility].
1. Please schedule a follow up appointment as directed. Call first thing tomorrow morning to make an appointment.
2. If indicated, please take your medications as instructed and indicated on discharge paperwork.
3. If any of your symptoms do not improve, or persist, or become more severe within 6-12 hours, please return to the emergency department for further care.
4. Please return to the emergency department if you develop a headache, neck pain/stiffness, fever greater than 100.4F, chest pain, shortness of breath, persistent nausea, vomiting, slurred speech, difficulty walking, numbness/tingling, weakness,
signs of infection or any other symptoms that are worrisome to you.
Please call [phone] if you have any questions.
Interventions
Interventions:
*Risk Screen - Suicide Last Done: 07/29/25 13:26
*General Assessment Last Done: 07/29/25 13:26
*Neglect/Abuse Screening Last Done: 07/29/25 13:26
*ED- Fall Risk Assessment Last Done: 07/29/25 17:20
*ED COVID-19 Vaccine History Last Done: 07/29/25 13:26
*ED Influenza Vaccine History Last Done: 07/29/25 13:26
*Nursing Disposition Last Done: 07/29/25 17:20
Discharge Date and Time
Print Language: BURUNDIAN
[2025-07-29] MEDS: NSS 1000 IV (16:01)
[2025-07-29 16:03] VITALS: BP 105/76; BMI 31.5
[2025-07-29 17:00] VITALS: BP 117/75
== END 2025-07-29 17:26 | disposition home or self-care (01) ==
LOC: EMR 13:23
PROVIDERS: Emergency Medicine; EMERGENCY PHYSICIAN Emergency Medicine
DX: E86.0 Dehydration (principal); E03.9 Hypothyroidism, unspecified; M79.7 Fibromyalgia; Z79.899 Other long term (current) drug therapy
CPT/HCPCS: 96360; 99284; 80053; 85025; 93005

== ENCOUNTER → 2025-09-25 13:16 | Outpatient (REF) | payer OTHER, SELFPAY | LOC: HWWDC 13:16 | PROVIDERS: ATTENDING PHYSICIAN Obstetrics & Gynecology; FAMILY PHYSICIAN Physician Assistant Medical | DX: Z12.31 Encounter for screening mammogram for malignant neoplasm of breast (principal) | CPT/HCPCS: 77063; 77067 ==